=== PATIENT | female | born 1970 | race Two or more races ===

== ENCOUNTER 2017-08-18 19:08 | Emergency (ER) | payer MEDICAID ==
[~2017-08-18] VITALS: Ht 165.1 cm; Wt 79.8 kg
[2017-08-18] MEDS ORDERED: Methocarbamol 500mg tab ORAL ONE (19:45)
[2017-08-18] MEDS ORDERED: Bacitracin Oint UD TOPIC ONE (19:45)
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
[2017-08-18] MEDS ORDERED: ROBAXIN500 MG PO (20:49)
[2017-08-18] MEDS ORDERED: TYLENOL EXTRA500 MG ORAL (20:49)
[2017-08-18 20:54] VITALS: BP 148/89
[2017-08-18 20:55] VITALS: BP 183/99
== END 2017-08-18 20:56 | disposition home or self-care (01) ==
LOC: EMR 19:46
DX: R51 Headache (principal); M54.9 Dorsalgia, unspecified; S80.212A Abrasion, left knee, initial encounter; V43.52XA Car driver injured in collision with other type car in traffic accident, initial encounter; Y92.410 Unspecified street and highway as the place of occurrence of the external cause; I10 Essential (primary) hypertension
CPT/HCPCS: 99284